=== PATIENT | female | born 1975 | race Caucasian/White ===

== ENCOUNTER 2023-11-08 06:02 | Day surgery (SDC) | payer BC ==
[2023-11-07 09:16] VITALS: BMI 32.4
[2023-11-08] MEDS ORDERED: Midazolam HCl 2 mg/2 ml Vial ONE (07:12)
[2023-11-08] MEDS ORDERED: PROPOFOL 60 ML ONE (07:12)
== END 2023-11-08 08:38 | disposition home or self-care (01) ==
LOC: CSHSDC 06:02
PROVIDERS: ATTEND Internal Medicine Gastroenterology
PROC: 0DJD8ZZ Inspection of Lower Intestinal Tract, Via Natural or Artificial Opening Endoscopic (ICD-10-PCS; principal; 2023-11-08)
DX: Z12.11 Encounter for screening for malignant neoplasm of colon (principal); K64.8 Other hemorrhoids; I10 Essential (primary) hypertension; F10.90 Alcohol use, unspecified, uncomplicated
CPT/HCPCS: J2250; J2704